=== PATIENT | male | born 1990 | race African-American/Black ===

== ENCOUNTER 2020-11-02 08:05 | Emergency (ER) | payer BC, MEDICAID ==
[~2020-11-02] VITALS: Ht 180.3 cm; Wt 91.0 kg
[~2020-11-02 08:05] MED LIST: ADAL40PE SQ; DOXY100C2 MT; MIRT-118 MT; OFLO5DRO3 LEFTEYE
[2020-11-02] MEDS ORDERED: FLUORESCEIN SODIUM 1MG/STRIP BOTHEYE ONE (08:45)
[2020-11-02] MEDS ORDERED: TETRACAINE 0.5% OPHTH DROPS 4ML BOTHEYE ONE (08:45)
[2020-11-02 11:29] LABS: BASOPHILS % 0.9 % (0.0-2.0); EOSINOPHILS % 2.5 % (0.0-5.0); HEMATOCRIT. 41.6 % (42.0-52.0); HEMOGLOBIN. 14.3 g/dL (14.0-18.0); LYMPHOCYTES % 44.6 % (20.0-50.0); MEAN CORPUSCULAR HEMOGLOBIN 28.6 pg (28.0-32.0); MEAN CORPUSCULAR VOLUME 83.3 fL (80.0-94.0); MEAN PLATELET VOLUME 6.8 fl (7.4-10.4); MONOCYTES % 6.1 % (2.0-8.0); NEUTROPHILS % 45.9 % (40.0-76.0); PLATELET 382 x1000/uL (130-400); RED CELL DISTRIBUTION WIDTH 13.4 % (11.6-14.6)
[2020-11-02 11:30] VITALS: BP 124/81
[2020-11-02 11:37] LABS: CHLORIDE 109 mEq/L (98-107)
[2020-11-02 11:38] LABS: PROTHROMBIN TIME 10.8 sec (9.6-11.0)
[2020-11-02] MEDS ORDERED: CIPROFLOXACIN 0.3% OPHTH SOLN 2.5ML BOTHEYE SCH (13:00)
[2020-11-13] MEDS ORDERED: CLOT24CR TP (15:21)
[2020-11-13] MEDS ORDERED: DOXY100C2 MT (15:21)
== END 2020-11-02 11:41 | disposition home or self-care (01) ==
LOC: ER 08:05
DX: S05.02XA Injury of conjunctiva and corneal abrasion without foreign body, left eye, initial encounter (principal); S05.01XA Injury of conjunctiva and corneal abrasion without foreign body, right eye, initial encounter; K50.90 Crohn's disease, unspecified, without complications; X58.XXXA Exposure to other specified factors, initial encounter; Y93.9 Activity, unspecified; Y92.9 Unspecified place or not applicable
CPT/HCPCS: 36415; 80053; 85025; 99283

== ENCOUNTER 2020-12-22 16:59 | Emergency (ER) | payer BC, MEDICAID ==
[~2020-12-22] VITALS: Ht 180.3 cm; Wt 88.3 kg
[~2020-12-22 16:59] MED LIST changes: +CLOT24CR TP; +MOXI3DRO12 EACHEYE
[2020-12-22 17:08] VITALS: BP 124/89
== END 2020-12-22 19:37 | disposition home or self-care (01) ==
LOC: ER 16:59
DX: Z20.6 Contact with and (suspected) exposure to human immunodeficiency virus [HIV] (principal); R03.0 Elevated blood-pressure reading, without diagnosis of hypertension
CPT/HCPCS: 99281; Z7610

== ENCOUNTER 2021-01-08 12:17 | Emergency (ER) | payer BC, MEDICAID ==
[~2021-01-08] VITALS: Ht 180.3 cm; Wt 88.0 kg
[2021-01-08 12:35] VITALS: BP 115/65
[2021-01-08] MEDS ORDERED: FLUORESCEIN SODIUM 1MG/STRIP LEFTEYE ONE (12:45)
[2021-01-08] MEDS ORDERED: NEOM7.5D8 LEFTEYE (13:06)
[2021-01-08] MEDS ORDERED: ERYT1OIN6 EACHEYE (13:18)
== END 2021-01-08 13:21 | disposition home or self-care (01) ==
LOC: ER 12:17
DX: S05.02XA Injury of conjunctiva and corneal abrasion without foreign body, left eye, initial encounter (principal); X58.XXXA Exposure to other specified factors, initial encounter; Y93.89 Activity, other specified; Y92.89 Other specified places as the place of occurrence of the external cause; Y99.8 Other external cause status; Z79.899 Other long term (current) drug therapy
CPT/HCPCS: 99283

== ENCOUNTER 2021-01-10 20:29 | Emergency (ER) | payer BC, MEDICAID ==
[~2021-01-10] VITALS: Ht 180.3 cm; Wt 93.0 kg
[~2021-01-10 20:29] MED LIST changes: +ERYT1OIN6 EACHEYE; +NEOM7.5D8 LEFTEYE
[2021-01-10 20:38] VITALS: BP 118/79
[2021-01-10] MEDS ORDERED: ACETAMINOPHEN 325MG TABLET PO ONE (23:00)
[2021-01-10] MEDS ORDERED: FLUORESCEIN SODIUM 1MG/STRIP LEFTEYE ONE (23:45)
[2021-01-11] MEDS ORDERED: ACET-2708 MT (00:17)
== END 2021-01-11 01:03 | disposition home or self-care (01) ==
LOC: ER 20:29
DX: Z20.822 Contact with and (suspected) exposure to COVID-19 (principal); M79.10 Myalgia, unspecified site; R11.0 Nausea; R43.8 Other disturbances of smell and taste; I10 Essential (primary) hypertension; S05.02XA Injury of conjunctiva and corneal abrasion without foreign body, left eye, initial encounter; X58.XXXA Exposure to other specified factors, initial encounter; Y93.9 Activity, unspecified; Y92.9 Unspecified place or not applicable
CPT/HCPCS: 87426; 99283

== ENCOUNTER 2021-02-23 07:52 | Emergency (ER) | payer BC, MEDICAID ==
[~2021-02-23] VITALS: Ht 180.3 cm; Wt 92.0 kg
[~2021-02-23 07:52] MED LIST changes: +ACET-2708 MT; -DOXY100C2 MT; +DOXY100C5 MT
[2021-02-23 07:55] VITALS: BP 134/79
[2021-02-23] MEDS ORDERED: FLUORESCEIN SODIUM 1MG/STRIP LEFTEYE ONE (08:15)
[2021-02-23] MEDS ORDERED: TETRACAINE 0.5% OPHTH DROPS 4ML LEFTEYE ONE (08:15)
[2021-02-23] MEDS ORDERED: OFLO5DRO3 LEFTEYE (08:25)
[2021-02-23] MEDS ORDERED: CIPROFLOXACIN 0.3% OPHTH SOLN 2.5ML LEFTEYE ONE (08:30)
== END 2021-02-23 08:43 | disposition home or self-care (01) ==
LOC: ER 07:52
DX: S05.02XA Injury of conjunctiva and corneal abrasion without foreign body, left eye, initial encounter (principal); H10.32 Unspecified acute conjunctivitis, left eye; N50.89 Other specified disorders of the male genital organs; K50.90 Crohn's disease, unspecified, without complications; X58.XXXA Exposure to other specified factors, initial encounter; Y93.9 Activity, unspecified; Y92.89 Other specified places as the place of occurrence of the external cause; Z59.00 Homelessness unspecified
CPT/HCPCS: 99283

== ENCOUNTER 2021-04-04 20:30 | Emergency (ER) | payer BC, MEDICAID ==
[~2021-04-04] VITALS: Ht 180.3 cm; Wt 100.0 kg
[2021-04-04 22:20] VITALS: BP 162/103
== END 2021-04-05 00:47 | disposition left against medical advice (07) ==
LOC: ER 20:30
DX: F15.10 Other stimulant abuse, uncomplicated (principal); R00.2 Palpitations; I10 Essential (primary) hypertension; K50.90 Crohn's disease, unspecified, without complications
CPT/HCPCS: 93005; 99283

== ENCOUNTER 2022-05-13 13:54 | Emergency (ER) | payer BC, MEDICAID ==
[~2022-05-13] VITALS: Ht 180.3 cm; Wt 87.0 kg
[2022-05-13] MEDS ORDERED: KETOROLAC 60MG/2ML VIAL IM ONE (15:30)
[2022-05-13 16:24] VITALS: BP 147/77
== END 2022-05-13 16:25 | disposition home or self-care (01) ==
LOC: ER 14:02
DX: M79.89 Other specified soft tissue disorders (principal); I10 Essential (primary) hypertension; Z79.899 Other long term (current) drug therapy
CPT/HCPCS: 96372; 99283; J1885